=== PATIENT | female | born 1985 | race Caucasian/White ===

== ENCOUNTER 2018-10-20 15:22 | Emergency (ER) | payer SELFPAY, MEDICAID ==
[2018-10-20 16:32] LABS: URINE BLOOD (Dip) POC 2+ (NEGATIVE); URINE GLUCOSE (Dip) POC Negative (NEGATIVE); URINE KETONES (Dip) POC Negative (NEGATIVE); URINE LEUKOCYTE EST (Dip) POC 1+ (NEGATIVE); URINE NITRITE (Dip) POC Negative (NEGATIVE); URINE TOTAL PROTEIN POC Negative (NEGATIVE)
[2018-10-20] MEDS: KETOROLAC 60 MG INJ IM (16:48)
== END 2018-10-20 17:18 | disposition home or self-care (01) ==
LOC: FTE 15:22
DX: N39.0 Urinary tract infection, site not specified (principal); M79.604 Pain in right leg
CPT/HCPCS: 73610; 73610-RT; 81003; 81025; 96372; 99284-25